=== PATIENT | female | born 1950 | race Caucasian/White ===

== ENCOUNTER 2018-01-20 09:48 | Day surgery (SDC) | payer MEDICARE ==
[2018-01-19 10:30] VITALS: BMI 33.8
[2018-01-20] MEDS ORDERED: Midazolam HCl 2 mg/2 ml Vial ONE (11:13)
[2018-01-20] MEDS ORDERED: Fentanyl 100 MCG/2 ML VIAL ONE ×3 (11:13→15:43)
[2018-01-20] MEDS ORDERED: Bupivacaine/Epinephrine 0.25% 30 ML VIAL ONE (11:40)
[2018-01-20] MEDS ORDERED: Heparin 5,000 UNITS/ML VIAL ONE (11:40)
[2018-01-20] MEDS ORDERED: Ioversol 68 % 50 ML VIAL ONE (11:40)
[2018-01-20] MEDS ORDERED: Protamine Sulfate 50 MG/5 ML VIAL ONE (11:40)
[2018-01-20 11:41] LABS: Anion Gap 15 mmol/L (10-20); BUN (Urea Nitrogen) 18 mg/dL (9.8-20.1); Calc. Creatinine Clearance 12 mL/min (70-130); Calcium 10.7 mg/dL (7.8-10.44); Carbon Dioxide 34 mmol/L (23-31); Chloride 95 mmol/L (98-107); Estimated GFR-MDRD 7; Glucose 85 mg/dL (80-115); Potassium 4.5 mmol/L (3.5-5.1); Sodium 139 mmol/L (136-145)
[2018-01-20 11:46] LABS: Mean Corpuscular HGB CONC 33.1 g/dL (32.0-36.0); Mean Corpuscular Hemoglobin 33.9 pg (27.0-31.0); Mean Platelet Volume 6.7 fL (7.4-10.4); Platelet Count 189 thou/uL (130-400); RBC Distribution Width 13.3 % (11.5-14.5); Red Blood Cell (RBC) Count 3.24 mill/uL (4.20-5.40); White Blood Cell (WBC) Count 3.2 thou/uL (4.8-10.8)
[2018-01-20] MEDS ORDERED: PROPOFOL 60 ML ONE (11:48)
[2018-01-20] MEDS ORDERED: Propofol 500 MG/50 ML VIAL ONE (11:48)
[2018-01-20] MEDS ORDERED: Famotidine/PF 20 mg/2ml Vial ONE (11:49)
[2018-01-20] MEDS ORDERED: CEFAZOLIN/Water 2 GM/20 ML SYRINGE ONE (11:53)
[2018-01-20 12:05] LABS: Band 1 % (5-11); Eosinophils 1 % (0-10); Lymphocytes 21 % (21-51); MDiff Complete? YES; Macrocytosis SLIGHT = 6-15 cells (100X) (0-5/hpf); Monocytes 10 % (0-10); Neutrophil 67 % (42-75)
[2018-01-20] MEDS ORDERED: Bupivacaine HCl 0.5%/Epinephrine 1:200,000/PF 30 ml Vial ONE (12:51)
[2018-01-20] MEDS ORDERED: Lidocaine 1% PF 5 ML VIAL ONE (13:11)
[2018-01-20] MEDS ORDERED: PROPOFOL 200 MG/20 ML VIAL ONE (13:11)
[2018-01-20] MEDS ORDERED: Ondansetron HCl/PF 4 MG/2 ML Vial ONE (13:11)
--- NOTE | 2018-01-20 17:43 | PDOC.OP ---
Operative Note - Operative Note Operative Note: PROCEDURE: Repair of right upper extremity AV fistula aneurysm DATE OF PROCEDURE: SURGEON: Adrián Gil M.D. 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 She has several large aneurysms of her fistula to which are becoming very thin and stretching of the overlying skin. She has not had any significant bleeding to date but the recommendation was made to address the aneurysms to prevent this from occurring PROCEDURE IN DETAIL: After informed consent was obtained and appropriate preoperative block administered the patient was taken to the operating wishes placed in supine position and total intravenous anesthesia was administered. She was prepped and draped in a standard sterile fashion and adequate peripheral block confirmed. Longitudinal incisions overlying the more normal portions of the fistula were made proximally and distally and the fistula was dissected free circumferentially and Vesseloops placed for proximal and distal control. A longitudinal incision was then made over the largest fistula in the upper arm excising some redundant skin area due to the fistula was dissected free down to its base. It was found to be broad-based without any identifiable neck. There wasn't any transition between normal and aneurysmal vessel visible in the wall of the vessel, which appeared thick-walled throughout. A long straight vascular clamp was obtained and placed longitudinally excluding the aneurysmal portion of the vessel and re-creating a tubular fistula. The aneurysmal portion of the vessel was resected and the vessel closed with a running Prolene suture with excellent technical result. The vessel clamp was removed and the longitudinal closure had excellent hemostasis. There was excellent thrill through the fistula throughout the procedure as the fistula was never occluded. The vessel was somewhat redundant so the decision was made to place this lateral to the skin incision to avoid overlapping of the incision over the fistula. This also allowed the incision and the vein to be placed laterally to avoid accessing through the incision. A small subcutaneous pocket was created and the vein placed within this pocket. Hemostasis was maintained throughout the procedure with Bovie electrocautery and Surgicel was placed along the length of the incision. The subcutaneous tissues were then approximated with a running 3-0 Monocryl suture and the skin incision was closed with a running 4-0 Monocryl subcuticular suture. Dermabond dressings were applied. The patient had adequate length of fistula above and below the incision for ongoing hemodialysis access in the areas which are acceptable to be accessed were marked on the skin for the hemodialysis nurses. An Ravi wrap was then placed and the patient was taken to the recovery room in good condition. Estimated blood loss was minimal. There were no complications. There were no specimens.
--- NOTE | 2018-01-20 20:31 | EKG ---
Test Reason : PREOP Blood Pressure : / mmHG Vent. Rate : 068 BPM Atrial Rate : 068 BPM P-R Int : 198 ms QRS Dur : 096 ms QT Int : 440 ms P-R-T Axes : 019 018 042 degrees QTc Int : 467 ms Normal sinus rhythm Normal ECG When compared with ECG of 24-JAN-2014 16:33, No significant change was found Confirmed by SVETLANA RAMIRES, SJaimie ([id number]) on 01/20/2018 8:30:40 PM Referred By: SAL Confirmed By:DR. Stone MOTA MD
== END 2018-01-20 17:18 | disposition home or self-care (01) ==
LOC: SDC 09:48
PROVIDERS: ATTEND Surgery
PROC: 03170ZD Bypass Right Brachial Artery to Upper Arm Vein, Open Approach (ICD-10-PCS; principal; 2018-01-20)
DX: T82.898A Other specified complication of vascular prosthetic devices, implants and grafts, initial encounter (principal); N18.6 End stage renal disease; I25.10 Atherosclerotic heart disease of native coronary artery without angina pectoris; F17.200 Nicotine dependence, unspecified, uncomplicated; Z86.73 Personal history of transient ischemic attack (TIA), and cerebral infarction without residual deficits; Z79.891 Long term (current) use of opiate analgesic; Z79.82 Long term (current) use of aspirin; Z79.899 Other long term (current) drug therapy; Z88.5 Allergy status to narcotic agent; Z99.2 Dependence on renal dialysis
CPT/HCPCS: 80048; 85025; 93005; 93010; 96374; J1644; J2250; J2704; J2720; J3010; Q9967; S0028

== ENCOUNTER 2018-03-17 07:15 | Day surgery (SDC) | payer MEDICARE ==
[2018-03-17] MEDS ORDERED: CEFAZOLIN/Water 2 GM/20 ML SYRINGE ONE (09:10)
[2018-03-17] MEDS ORDERED: Bupivacaine/Epinephrine 0.25% 30 ML VIAL ONE (09:24)
[2018-03-17] MEDS ORDERED: Sodium Chloride 0.9% 30 ML ONE (09:24)
[2018-03-17] MEDS ORDERED: Heparin 5,000 UNITS/ML VIAL ONE (09:24)
[2018-03-17] MEDS ORDERED: Protamine Sulfate 50 MG/5 ML VIAL ONE (09:24)
[2018-03-17] MEDS ORDERED: Fentanyl 100 MCG/2 ML VIAL ONE ×2 (09:42)
[2018-03-17] MEDS ORDERED: Lidocaine 2% 10 ML INJ ONE (10:12)
[2018-03-17 11:04] LABS: #Eosinphils 0.1 thou/uL (0.0-0.7); #Lymphocytes 1.1 thou/uL (1.20-3.40); #Monocytes 0.4 thou/uL (0.11-0.59); %Basophils 0.8 % (0.0-1.0); %Eosinophils 3.2 % (0.0-10.0); %Lymphocytes 30.6 % (21.0-51.0); %Neutrophils 53.4 % (42.0-75.0); Mean Corpuscular HGB CONC 34.5 g/dL (32.0-36.0); Mean Corpuscular Hemoglobin 35.3 pg (27.0-31.0); Mean Platelet Volume 6.4 fL (7.4-10.4); Platelet Count 183 thou/uL (130-400); RBC Distribution Width 13.2 % (11.5-14.5); White Blood Cell (WBC) Count 3.7 thou/uL (4.8-10.8)
[2018-03-17 11:25] LABS: Anion Gap 17 mmol/L (10-20); BUN (Urea Nitrogen) 34 mg/dL (9.8-20.1); Calc. Creatinine Clearance 0 mL/min (70-130); Calcium 9.2 mg/dL (7.8-10.44); Carbon Dioxide 30 mmol/L (23-31); Chloride 99 mmol/L (98-107); Estimated GFR-MDRD 7; Glucose 82 mg/dL (80-115); Potassium 5.5 mmol/L (3.5-5.1); Sodium 140 mmol/L (136-145)
--- NOTE | 2018-03-17 14:15 | RAD ---
SINGLE VIEW OF THE CHEST: Comparison: 11-28-15 History: Central line placement. FINDINGS: Single view of the chest shows a right IJ central venous catheter. This appears curled back on itself with the tip extending up the neck. No pneumothorax is seen. There is no evidence of consolidation, mass, or pleural effusions. A stent is seen in the left arm. IMPRESSION: Right IJ catheter appears to have a malpositioned tip extending back up the neck. POS: [facility]
[2018-03-17] MEDS ORDERED: PROPOFOL 200 MG/20 ML VIAL ONE (14:37)
[2018-03-17] MEDS ORDERED: PHENYLEPHRINE-NS 100 MCG/ML 10 ML SYRINGE ONE (14:37)
[2018-03-17] MEDS ORDERED: Ondansetron HCl/PF 4 MG/2 ML Vial ONE (14:37)
[2018-03-17] MEDS ORDERED: ePHEDrine/0.9% NaCl/PF SYRINGE 50 mg/10 ml ONE (14:37)
[2018-03-17] MEDS ORDERED: Lidocaine 1% PF 5 ML VIAL ONE (14:37)
--- NOTE | 2018-03-25 20:04 | PDOC.OP ---
Operative Note - Operative Note Operative Note: PROCEDURE: Repair of aneurysm of right AV fistula DATE OF PROCEDURE: 03/17/2018 SURGEON: Adrián Gil M.D. PREOPERATIVE DIAGNOSES: Enlarging aneurysm of right AV fistula POSTOPERATIVE DIAGNOSIS: Enlarging aneurysm of right AV fistula HISTORY: Patient with end-stage renal failure and right upper arm AV fistula with 2 very large and growing aneurysms of the fistula. She has previously undergone repair of the superior aneurysm and has healed from that. She is now here for repair of the inferior aneurysm. PROCEDURE IN DETAIL: After informed consent was obtained and appropriate preoperative antibiotics administered the patient was taken to the operating she was placed in supine position and anesthesia was administered. A longitudinal elliptical incision was made incorporating some the redundant skin over the large aneurysm. Dissection was carried down to the AV fistula proximal and distal to the aneurysm and vessel loops were placed for proximal and distal control. The aneurysm was then dissected free of the surrounding subcutaneous tissues. This was very broad-based aneurysm without any neck. A curved Satinsky clamp was used to exclude the redundant aneurysmal tissue while maintaining flow through the fistula and recreating the normal cylindrical anatomy of the fistula. The extraneous aneurysmal tissue and overlying skin was excised and the venotomy closed with a running Prolene suture with excellent technical result. The excision was done in such a way that the suture line would be along the lateral aspect of the fistula would not directly underlying the skin incision. The Satinsky clamp was then removed and hemostasis from the suture line confirmed. The wound was irrigated and hemostasis obtained using Bovie electrocautery on the subcutaneous tissues as needed. Surgicel was placed to the anastomosis as precaution. The subcutaneous tissues were reapproximated with a 3-0 Monocryl suture and the skin was closed with 4-0 Monocryl and Dermabond dressings were placed. The area of the fistula which had been dissected out was clearly marked on the skin as not being appropriate to access for hemodialysis. The fistula proximal and distal to the area of repair was marked as being appropriate for hemodialysis access. An excellent thrill was maintained through the fistula throughout the case. The patient was taken to recovery in good condition. Estimated blood loss was minimal. There were no complications.
== END 2018-03-17 15:16 | disposition home or self-care (01) ==
LOC: SDC 07:15
PROVIDERS: ATTEND Surgery
PROC: 03LY0CZ Occlusion of Upper Artery with Extraluminal Device, Open Approach (ICD-10-PCS; principal; 2018-03-17)
DX: T82.898A Other specified complication of vascular prosthetic devices, implants and grafts, initial encounter (principal); I77.0 Arteriovenous fistula, acquired; N18.6 End stage renal disease; I25.10 Atherosclerotic heart disease of native coronary artery without angina pectoris; F17.210 Nicotine dependence, cigarettes, uncomplicated; Z88.5 Allergy status to narcotic agent; Z79.82 Long term (current) use of aspirin; Z79.899 Other long term (current) drug therapy; Z90.5 Acquired absence of kidney
CPT/HCPCS: 71045; 80048; 85025; A4216; J1644; J2001; J2405; J2704; J2720; J3010

== ENCOUNTER 2018-09-15 11:01 | Outpatient (CLI) | payer MEDICARE ==
--- NOTE | 2018-09-15 12:08 | ULT ---
HEPATIC DUPLEX ULTRASOUND: Date: 09/15/18 INDICATION: History of hepatitis C. TECHNIQUE: Rod scale, color Doppler, and spectral images obtained of the liver, spleen, and hepatic vasculature . FINDINGS: Liver measures 15.5 cm in length. Liver had a coarse echotexture suspicious for underlying chronic li isha disease. No focal hepatic lesion is evident. There is appropriate hepatopetal flow seen within th e portal vein, splenic vein, and hepatic artery. Appropriate flow is seen within the splenic artery a nd hepatic veins. The spleen measured 10.4 cm in length. IMPRESSION: 1. Appropriate hepatopetal flow. 2. Coarse echotexture of the liver suspicious for underlying chronic liver disease. POS: [facility]
== END 2018-09-15 11:02 | disposition home or self-care (01) ==
LOC: SCSULT 11:01
PROVIDERS: ATTEND Physician Assistant Medical
DX: B18.2 Chronic viral hepatitis C (principal); D64.9 Anemia, unspecified; Z86.010 Personal history of colon polyps
CPT/HCPCS: 76705

== ENCOUNTER 2018-09-27 08:33 | Outpatient (CLI) | payer MEDICARE ==
--- NOTE | 2018-09-27 15:15 | CT ---
CT ABDOMEN AND PELVIS WITH IV CONTRAST: 09/27/2018 HISTORY: Colonic mass. History of right nephrectomy. Hepatitis. History of cholecystectomy. COMPARISON: 05/21/2011 FINDINGS: Dense vascular calcifications are seen in the visualized coronary arteries, as well as involving the abdominal aorta and iliac arteries. A vascular stent is again seen within the right external iliac a rtery. Post surgical changes related to a right nephrectomy are again seen. There are multiple hypodense le ft renal lesions seen, the largest measuring 2.4 cm, which demonstrates fluid attenuation. The addit ional lesions also likely represent multiple left renal cysts. There is renal cortical thinning pres ent. There is no hydronephrosis present. A tiny, subcentimeter, hypodense lesion is seen in the posterior segment, right hepatic lobe, which i s too small to characterize. The liver otherwise has a normal CT appearance. The spleen, pancreas, and bilateral adrenal glands demonstrate a normal CT appearance. There is dependent bibasilar atelectasis. The urinary bladder is incompletely distended but, otherwise, grossly normal in appearance. The uter us and adnexal structures demonstrate a normal appearance for the patient's age. The majority of the loops of small bowel are present within the right abdomen. However, the ligament of Treitz does extend in normal position. There is a fat density mass seen within the hepatic flexure of the colon, which does appear peduncula elizabeth. The largest length, as measured on coronal images, is 4.3 cm. The largest dimension on the corina or study, in 201, is 3.5 cm. A few linear, low density areas are seen within this fat density mass. This, again, may represent a lipoma within the hepatic flexure of the colon. This is, again, likely related to a lipoma, although thin linear densities are seen within this fat density mass. Liposarc denisse presenting as an intraluminal mass, involving the colon, is extremely rare. This mass was also p resent on a prior study in 2005, measuring 2.6 cm in maximal dimensions. A small amount of retained fecal material is seen throughout the colon. Loops of small bowel are nor mal in caliber. Degenerative changes are seen in the spine. IMPRESSION: 1. Fat density colonic mass in the hepatic flexure of the colon. This mass does appear pedunculated and is larger in size, compared to studies in 2010 and 2005. The greatest dimension on today's exam ination is approximately 4.3 cm. Findings are most likely attributable to mild enlargement of a lipo ma, as opposed to a liposarcoma. 2. Subcentimeter, yyj-uajsm-uv-characterize, hypodense lesions, right hepatic lobe. 3. Post surgical changes related to right nephrectomy. 4. Interval development of multiple hypodense left renal lesions, likely attributable to multiple le ft renal cyst. There is cortical thinning involving the left kidney. 5. Tiny, fat-containing umbilical hernia. 6. Mild cardiomegaly. The above findings were discussed with Dr. Babcock on 09/27/2018 at 1317 hours. POS: [facility]
== END 2018-09-27 08:34 | disposition home or self-care (01) ==
LOC: SCSCT 08:33
PROVIDERS: ATTEND Internal Medicine Gastroenterology
DX: K63.9 Disease of intestine, unspecified (principal); K76.9 Liver disease, unspecified; N28.9 Disorder of kidney and ureter, unspecified; K42.9 Umbilical hernia without obstruction or gangrene; I51.7 Cardiomegaly; Z90.5 Acquired absence of kidney
CPT/HCPCS: 74177

== ENCOUNTER 2020-05-20 14:34 | Inpatient (IN) | payer MEDICARE, OTHER ==
[2020-05-20] MEDS ORDERED: Ondansetron ODT 4 MG TAB PO PRN (15:47)
[2020-05-20] MEDS ORDERED: Senokot S 8.6-50 MG TAB PO PRN (15:47)
[2020-05-20] MEDS ORDERED: Acetaminophen 325 MG TAB PO PRN (15:47)
[2020-05-20] MEDS ORDERED: Dextrose 5% in Water 1,000 ML IV PRN (15:53)
[2020-05-20] MEDS ORDERED: Insulin Regular 300 UNITS/3 ML VIAL SC PRN (15:53)
[2020-05-20 16:21] LABS: #Lymphocytes 0.9 thou/uL (1.20-3.40); #Monocytes 0.8 thou/uL (0.11-0.59); #Neutrophils 3.9 thou/uL (1.40-6.50); %Basophils 0.2 % (0.0-1.0); %Eosinophils 0.2 % (0.0-10.0); %Lymphocytes 15.3 % (21.0-51.0); %Monocytes 13.5 % (0.0-10.0); %Neutrophils 70.8 % (42.0-75.0); Hemoglobin 15.5 g/dL (12.0-16.0); Mean Corpuscular Hemoglobin 32.7 pg (27.0-31.0); Mean Platelet Volume 8.1 fL (7.4-10.4); Platelet Count 149 thou/uL (130-400); RBC Distribution Width 16.3 % (11.5-14.5); Red Blood Cell (RBC) Count 4.74 mill/uL (4.20-5.40); White Blood Cell (WBC) Count 5.6 thou/uL (4.8-10.8)
[2020-05-20] MEDS ORDERED: Dextrose 50% Abboject 50 ML SYRINGE ONE (16:26)
[2020-05-20] MEDS ORDERED: Gabapentin 300 MG CAP PO PRN (16:28)
[2020-05-20] MEDS ORDERED: Labetalol HCl 100 MG/20 ML VIAL SLOW IVP PRN (16:31)
[2020-05-20 16:44] LABS: ALT (SGPT) 20 U/L (8-55); AST (SGOT) 26 U/L (5-34); Albumin 3.6 g/dL (3.4-4.8); Alkaline Phosphatase 140 U/L (40-110); Anion Gap 24 mmol/L (10-20); BUN (Urea Nitrogen) 48 mg/dL (9.8-20.1); Bilirubin, Total 0.6 mg/dL (0.2-1.2); Calc. Creatinine Clearance 8 mL/min (70-130); Carbon Dioxide 22 mmol/L (23-31); Chloride 97 mmol/L (98-107); Estimated GFR-MDRD 5; Globulin 3.3 g/dL (2.4-3.5); Magnesium 2.7 mg/dL (1.6-2.6); Protein, Total 6.9 g/dL (6.0-8.3); Sodium 137 mmol/L (136-145)
[2020-05-20] MEDS ORDERED: Sodium Chloride 0.9% 1,000 ML IV SCH (16:45)
[2020-05-20 16:54] LABS: Glucose 24 mg/dL (83-110)
--- NOTE | 2020-05-20 17:19 | HP ---
CHIEF COMPLAINT: Altered mentation. HISTORY OF PRESENT ILLNESS: A 70-year-old female with end-stage renal disease, on hemodialysis; coronary artery disease; and undergone rehab, just recently for the last 2 days; presenting with altered mentation. She was complaining of abdominal pain today as well as labile mentation, brought in by EMS to [facility] and found that her blood glucose was [address] of head showed several osteolytic lesions in the cranium. She was recently discharged after hospitalization for recurrent hypoglycemia, hypercalcemia, and hypotension. 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 REVIEW OF SYSTEMS: Not obtainable. PAST MEDICAL HISTORY: Recurrent hypoglycemia; hypercalcemia, end-stage renal disease, on hemodialysis; hypertension; history of hepatitis C; and secondary hyperparathyroidism. MEDICATIONS: She was discharged with the following medications: 1. Aspirin 81 mg. 2. Coreg 3.125 twice a day. 3. Gabapentin 600 mg p.o. at bedtime. 4. Effexor 150 mg daily. 5. Midodrine 5 mg 3 times a day. 6. Vitamin D3 of 1000 units. 7. Nephro-Mel 1 tablet. 8. Renvela 1600 mg 3 times a day. SOCIAL HISTORY: The patient currently lives with her son and [id number]. FAMILY HISTORY: Noncontributory. PHYSICAL EXAMINATION: GENERAL: She is afebrile, normotensive. She is quite altered. She is able to open her eyes for her name. Other than that, she is not responding much. 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 She has right AV fistula. She has some ecchymosis on her extremities. Lower extremities look very chronic venous stasis, dermatitis, associated skin changes. She has some mild pitting edema. CARDIOVASCULAR: Regular rate and rhythm without murmurs, rubs, or gallops. LUNGS: Clear to auscultation bilaterally. ABDOMEN: Quite benign, did not appreciate much tenderness. LABORATORY DATA: Currently, labs are performed at [place] showing calcium of 12.1, potassium of 6.3. Troponin now 0.44. EKG without any ST-T wave changes. IMPRESSION AND PLAN: This is a 70-year-old female with multiple medical problems, presenting with the followin. Altered mentation, likely secondary to recurrent hypoglycemia and hypercalcemia Initial blood glucose was 22 when checked at [facility]. It improved after the hypoglycemic protocol, but still she is mentally not more alert. We will continue with the Accu-Chek q.2 hours and correct her blood glucose to keep it above 70. 2. End-stage renal disease, on Wednesday, Wednesday, Wednesday dialysis. She missed her dialysis today. Dr. Hernandez is following. I will consult him for ongoing routine dialysis. Continue with renal medications. 3. Coronary artery disease. She follows with Dr. Agustin Rodriguez. Based on the conversation with the family member, no aggressive cardiac intervention. She has several blockages in the coronary vessels and developed significant collaterals. No aggressive cardiac intervention given her comorbidities. 4. Hyperkalemia with potassium of 6.3 without EKG changes. she will go through dialysis. 5. CT of head performed at [place] showing some osteolytic lesions concerning for new diagnosis of possible multiple myeloma. Her protein is 7.4, alkaline phosphatase 136, not strongly indicating the diagnosis. We will get urine electrophoresis as well as serum electrophoresis and consult the oncologist. 6. The patient does ambulate in the wheelchair for last 4 years due to severe DJD associated back discomfort. Could it be MM at initial stage?, she is still able to do some of her ADL activities by ambulating via wheelchair. She does not void. I talked to the [id number], her name is Lainey Do, , and the patient is DNR. I will put her on DVT prophylaxis, renally dosed heparin. Job ID: [id number] [facility]
[2020-05-20] MEDS: Sevelamer Carbonate 800 MG TAB PO SCH (17:50)
[2020-05-20] MEDS: Dextrose 10% in Water 1,000 ML IV SCH (17:50)
[2020-05-20] MEDS: Dextrose 50% Abboject 50 ML SYRINGE SLOW IVP PRN (20:51)
[2020-05-20] MEDS: Carvedilol 6.25 MG TAB PO SCH (21:35)
[2020-05-20] MEDS: Heparin 5,000 UNITS/ML VIAL SC SCH (21:35)
[2020-05-20] MEDS: Midodrine HCl 5 MG TAB PO SCH (21:48)
[2020-05-21] MEDS: Dextrose 50% Abboject 50 ML SYRINGE SLOW IVP PRN ×3 (02:13→19:24)
[2020-05-21] MEDS: Midodrine HCl 5 MG TAB PO SCH ×3 (06:18→20:55)
[2020-05-21] MEDS: Sevelamer Carbonate 800 MG TAB PO SCH ×3 (10:43→17:08)
[2020-05-21] MEDS: Aspirin 81 mg Enteric Coated Tablet PO SCH (10:44)
[2020-05-21] MEDS: Fluticasone Propionate Nasal Spray 16 gm Bottle NASAL SCH (10:45)
[2020-05-21] MEDS: Folic Acid/Vit B Comp W-C PO SCH (10:45)
[2020-05-21] MEDS: Cholecalciferol 1,000 UNITS (25 MCG) TAB PO SCH (10:45)
[2020-05-21] MEDS: Carvedilol 6.25 MG TAB PO SCH ×2 (10:45→20:04)
[2020-05-21] MEDS: Venlafaxine HCl XR 150 MG CAP PO SCH (10:46)
[2020-05-21] MEDS: Heparin 5,000 UNITS/ML VIAL SC SCH ×2 (10:46→20:02)
[2020-05-21 12:15] LABS: ALT (SGPT) 17 U/L (8-55); AST (SGOT) 21 U/L (5-34); Albumin 3.3 g/dL (3.4-4.8); Alkaline Phosphatase 128 U/L (40-110); BUN (Urea Nitrogen) 44 mg/dL (9.8-20.1); Bilirubin, Total 0.6 mg/dL (0.2-1.2); Calc. Creatinine Clearance 9 mL/min (70-130); Calcium 10.3 mg/dL (7.8-10.44); Carbon Dioxide 24 mmol/L (23-31); Chloride 95 mmol/L (98-107); Estimated GFR-MDRD 5; Globulin 2.5 g/dL (2.4-3.5); Glucose 157 mg/dL (83-110); Potassium 4.6 mmol/L (3.5-5.1); Protein, Total 5.8 g/dL (6.0-8.3)
[2020-05-21 12:18] LABS: HBSAg Index 0.18 S/CO (0-0.99); Hep B Surf Ag Non-Reactive S/CO (NonReactive)
[2020-05-21 12:24] LABS: Anion Gap 20 mmol/L (10-20); HBSAB Concentration 67.57 mIU/mL; Hep B Surf AB Reactive (NonReactive); Sodium 135 mmol/L (136-145)
[2020-05-21 13:33] LABS: SARS-CoV-2 MS2 Positive; SARS-CoV-2 N Gene Negative; SARS-CoV-2 S Gene Negative; SARS-CoV-2 by NAA Not Detected (NotDetected); SARS-CoV-2 orf1ab Negative
--- NOTE | 2020-05-21 13:56 | PDOC.HOSPP ---
- Subjective Encounter Date: 05/21/20 Encounter Time: 12:25 Subjective: lethargic, does not follow verbal stimuli keeps moaning - Objective Vital Signs & Weight: Vital Signs (12 hours) Temp BP Pulse Ox 05/21/20 11:41 97.9 F 05/21/20 10:45 96/42 L 05/21/20 07:59 97 05/21/20 07:41 97.8 F Weight Weight 182 lb 8 oz Most Recent Monitor Data Heart Rate from ECG 70 NIBP 100/58 NIBP BP-Mean 72 Respiration from ECG 15 SpO2 91 I&O: 05/20/20 05/21/20 05/22/20 06:59 06:59 06:59 Intake Total 600 Output Total 0 Balance 600 Result Diagrams: 05/20/20 16:05 05/21/20 11:00 Additional Labs: Accuchecks 05/21/20 05/21/20 05/21/20 11:39 10:06 09:07 POC Glucose 124 H 69 L 63 L 05/21/20 05/21/20 05/21/20 08:17 06:10 04:31 POC Glucose 77 90 109 H 05/21/20 05/21/20 05/21/20 03:23 02:14 01:04 POC Glucose 151 H 69 L 91 05/20/20 05/20/20 05/20/20 23:52 22:33 21:40 POC Glucose 100 131 H 144 H 05/20/20 05/20/20 05/20/20 20:54 19:27 18:40 POC Glucose 54 L* 72 78 05/20/20 17:24 POC Glucose 102 H Hospitalist ROS - Medication Medications: Active Medications Generic Name Dose Route Start Last Admin Trade Name Carlitosq PRN Reason Stop Dose Admin Aspirin 81 mg 05/21/20 09:00 05/21/20 10:44 Aspirin 81 Mg Enteric Coated Tablet PO Not Given DAILY [facility] Carvedilol 3.125 mg 05/20/20 21:00 05/21/20 10:45 Carvedilol 6.25 Mg Tab PO Not Given BID [facility] Cholecalciferol 1,000 units 05/21/20 09:00 05/21/20 10:45 Cholecalciferol 1,000 Units (25 Mcg) Tab PO Not Given DAILY [facility] Dextrose/Water 25 gm 05/20/20 15:53 05/21/20 10:18 Dextrose 50% Abboject 50 Ml Syringe SLOW IVP 25 gm PRN PRN Administration Hypoglycemia Fluticasone Propionate 1 gm 05/21/20 09:00 05/21/20 10:45 Fluticasone Propionate Nasal Dafter 16 Gm Bottle NASAL Not Given DAILY [facility] Heparin Sodium (Porcine) 5,000 units 05/20/20 21:00 05/21/20 10:46 Heparin 5,000 Units/Ml Vial SC Not Given BID [facility] Dextrose/Water 1,000 mls @ 50 mls/hr 05/20/20 17:15 05/20/20 17:50 Dextrose 10% In Water IV 1,000 mls .Q20H [facility] Administration Midodrine 5 mg 05/20/20 22:00 05/21/20 06:18 Midodrine Hcl 5 Mg Tab PO Not Given Q8HR [facility] Sevelamer Carbonate 1,600 mg 05/20/20 17:00 05/21/20 10:43 Sevelamer Carbonate 800 Mg Tab PO Not Given TID-WM [facility] Venlafaxine HCl 150 mg 05/21/20 09:00 05/21/20 10:46 Venlafaxine Hcl Xr 150 Mg Cap PO Not Given QAM [facility] Vitamin B Complex/Vit C/Folic Acid 1 tab 05/21/20 09:00 05/21/20 10:45 Folic Acid/Vit B Comp W-C PO Not Given DAILY [facility] - Exam General Appearance: ill appearing Eye: PERRL, anicteric sclera ENT: no oropharyngeal lesions, dry oral mucosa Neck: supple, no JVD Heart: RRR, no murmur Respiratory: no wheezes, no rales Gastrointestinal: soft, non-tender, non-distended, normal bowel sounds Extremities: no cyanosis, no edema Neurological: cranial nerve grossly intact, no focal deficits Hosp A/P (1) Hypoglycemia Code(s): E16.2 - HYPOGLYCEMIA, UNSPECIFIED Status: Acute (2) Acute metabolic encephalopathy Code(s): G93.41 - METABOLIC ENCEPHALOPATHY Status: Acute (3) ESRD (end stage renal disease) on dialysis Code(s): N18.6 - END STAGE RENAL DISEASE; Z99.2 - DEPENDENCE ON RENAL DIALYSIS Status: Chronic (4) Multiple myeloma Code(s): C90.00 - MULTIPLE MYELOMA NOT HAVING ACHIEVED REMISSION Status: Suspected (5) Ribs, multiple fractures Code(s): S22.49XA - MULTIPLE FRACTURES OF RIBS, UNSP SIDE, INIT FOR CLOS FX Status: Chronic Qualifiers: Encounter type: sequela Fracture type: closed Laterality: right Qualified Code(s): S22.41XS - Multiple fractures of ribs, right side, sequela (6) Hepatitis C Code(s): B19.20 - UNSPECIFIED VIRAL HEPATITIS C WITHOUT HEPATIC COMA Status: Chronic Qualifiers: Viral hepatitis chronicity: chronic Hepatic coma status: without hepatic coma Qualified Code(s): B18.2 - Chronic viral hepatitis C (7) Hypercalcemia Code(s): E83.52 - HYPERCALCEMIA Status: Acute (8) Hypertension Code(s): I10 - ESSENTIAL (PRIMARY) HYPERTENSION Status: Chronic - Plan she will be getting HD today has severe lytic lesions in most of her skeletal imaging is on D10 drip, still dipping into 50's at times blood cultures stat, start cefepime, vanc (no obvious source of infection but suspected due to profound hypoglycemia) CT abd stone protocol to see for ?perf viscous start liq diet as tolerated and advance spep, light chain has been sent out cortisol, tsh levels stat prognosis guarded due to multiple medical issues in addition to new findings of lytic lesions in axial skeleton and right breast mass?
[2020-05-21] MEDS ORDERED: Vancomycin HCl 1 GM in Sodium Chloride 0.9% 250 ML 250 ML IVPB SCH (14:00)
[2020-05-21] MEDS: Morphine 2 MG/ML VIAL SLOW IVP PRN ×2 (14:35→20:02)
[2020-05-21] MEDS ORDERED: Vancomycin 1 GM in Premix Bag 1 BAG IVPB SCH (15:00)
[2020-05-21] MEDS ORDERED: HOLD VANCOMYCIN FOR LEVEL >20 FS SCH (15:00)
[2020-05-21] MEDS ORDERED: Vancomycin HCl 500 MG in Sodium Chloride 0.9% 100 ML IVPB SCH (15:00)
[2020-05-21] MEDS ORDERED: Vancomycin HCl 750 MG in Sodium Chloride 0.9% 250 ML 250 ML IVPB SCH (15:00)
[2020-05-21] MEDS ORDERED: Vancomycin HCl 1.25 GM in Sodium Chloride 0.9% 250 ML 250 ML IVPB SCH (15:00)
[2020-05-21] MEDS: Dextrose 10% in Water 1,000 ML IV SCH (15:12)
[2020-05-21] MEDS ORDERED: Cefepime 1 GM in Sodium Chloride 0.9% 100 ML IVPB SCH (16:00)
[2020-05-21] MEDS: Cefepime 0.5 GM in Sodium Chloride 0.9% 100 ML IVPB SCH (16:15)
--- NOTE | 2020-05-21 18:34 | CON ---
DATE OF CONSULTATION: REASON FOR CONSULTATION: Lytic lesions. HISTORY OF PRESENT ILLNESS: Ms. Marcus is a 70-year-old female, who presented to the [place] [facility] from the [facility] for altered mental status. She was in the rehab after hospitalization for end-stage renal disease, hypercalcemia, and secondary hypoparathyroidism. She was doing well until several days ago when she began to be confused. In the ER at [place], she underwent a brain CT, which showed large osteolytic masses throughout the skull. She then underwent a chest, abdomen, and pelvis CT. There was a soft tissue mass in the right breast. She had multiple lytic foci throughout the vertebral body. She had a submucosal lipoma of the transverse colon. There was a moderate right pleural effusion. She has soft tissue mass in the right L3 lamina. She was started on IV fluids and admitted to the [facility]. She has been borderline hypotensive. She was seen at bedside with her son and [id number] present. She is confused and does not answer questions. She was currently on dialysis. She is yelling "it hurts." PAST MEDICAL HISTORY: 1. Coronary artery disease. 2. End-stage renal disease. 3. Chronic hypercalcemia. 4. Secondary hyperparathyroidism. 5. Hypertension. 6. History of hepatitis C. PAST SURGICAL HISTORY: 1. Left hand amputation. 2. Right nephrectomy. 3. Cholecystectomy. ALLERGIES: TO DILAUDID. HOME MEDICATIONS: 1. Aspirin. 2. Gabapentin. 3. Atorvastatin. 4. Coreg. 5. Cinacalcet. 6. Midodrine. 7. Prilosec. 8. MiraLAX. 9. Sevelamer carbonate. 10. Venlafaxine. 11. Calcium carbonate. 12. Clonidine. FAMILY HISTORY: Noncontributory. SOCIAL HISTORY: Lives with her son and [id number]-[id number], but was in the rehab post hospitalization . REVIEW OF SYSTEMS: Unable to obtain secondary to mentation changes. PHYSICAL EXAMINATION: VITAL SIGNS: Temperature 97.9, pulse 70, respiratory rate 15, and BP 100/58. She is 100% on room air. GENERAL: This is a chronically ill-appearing female, in mild distress. HEENT: Normocephalic and atraumatic. NECK: Supple. CV: Irregular rate and rhythm. LUNGS: Diminished throughout. ABDOMEN: Her abdomen is soft and nontender. Bowel sounds are positive. EXTREMITIES: No clubbing or cyanosis. SKIN: She has ecchymosis on her upper extremities. BREASTS: She has a small palpable lesion in the upper outer quadrant of her right breast. There are no skin changes. NEUROLOGICAL: The patient is altered and oriented x0. PERTINENT LABS AND X-RAYS: Current WBCs are 5.6, hemoglobin 15.5, hematocrit 50, and platelet count is 149,000. She has 70% neutrophils, 15% lymphocytes, 13% monocytes. Sodium is 135, potassium is 4.6, chloride is 95, CO2 is 24, BUN is 44, creatinine is 7.41, glucose is 157, and calcium is 10.3. Bilirubin is 0.6, AST is 21, ALT is 17, and alk phos is 128. Troponin is 0.446. C-reactive protein is 1.87. Serum total protein is 5.8, albumin is 3.3, and globulin is 2.5. TSH is 0.7903. COVID negative. RADIOLOGY: Per HPI. ASSESSMENT: 1. Acute toxic metabolic encephalopathy. 2. 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 3. Right breast mass. 4. Recent diagnosis of secondary hyperparathyroidism with hypercalcemia. DISCUSSION: Case has been discussed with Dr. Cazares. I had long discussion with family at bedside about biopsy of the right breast and one of the soft tissue mass at L3. The patient is currently confused and in distress. So, this can be deferred until her condition improves and serum protein electrophoresis has been sent pending results. Differential diagnosis includes multiple myeloma versus metastatic bone disease versus primary breast cancer. Family is hesitant to do biopsy as she is likely to poorly tolerate any treatment and I would agree with that. We will follow her over the next several days and continue the discussion on how aggressive to proceed. Thank you for the consult. Job ID: [id number]
[2020-05-22] MEDS: Morphine 2 MG/ML VIAL SLOW IVP PRN ×2 (01:23→20:55)
[2020-05-22] MEDS: Dextrose 50% Abboject 50 ML SYRINGE SLOW IVP PRN (01:30)
[2020-05-22] MEDS: Midodrine HCl 5 MG TAB PO SCH ×3 (05:47→21:01)
[2020-05-22] MEDS: Sevelamer Carbonate 800 MG TAB PO SCH ×3 (09:46→18:11)
[2020-05-22] MEDS: Carvedilol 6.25 MG TAB PO SCH ×2 (09:46→20:54)
[2020-05-22] MEDS: Cholecalciferol 1,000 UNITS (25 MCG) TAB PO SCH (09:46)
[2020-05-22] MEDS: Fluticasone Propionate Nasal Spray 16 gm Bottle NASAL SCH (09:46)
[2020-05-22] MEDS: Aspirin 81 mg Enteric Coated Tablet PO SCH (09:46)
[2020-05-22] MEDS: Folic Acid/Vit B Comp W-C PO SCH (09:47)
[2020-05-22] MEDS: Venlafaxine HCl XR 150 MG CAP PO SCH (09:47)
[2020-05-22] MEDS: Dextrose 10% in Water 1,000 ML IV SCH (10:17)
[2020-05-22] MEDS: Heparin 5,000 UNITS/ML VIAL SC SCH ×2 (10:17→21:09)
[2020-05-22 10:30] LABS: Vancomycin, Random 26.8 ug/mL (See Comment)
--- NOTE | 2020-05-22 14:26 | PDOC.HOSPP ---
- Subjective Encounter Date: 05/22/20 Encounter Time: 11:00 Subjective: awake, not oriented, does not follow verbal stimuli still encephalopathic - Objective Vital Signs & Weight: Vital Signs (12 hours) Temp BP Pulse Ox 05/22/20 11:10 98.1 F 05/22/20 09:46 96/42 L 05/22/20 08:00 100 05/22/20 07:21 98.0 F Weight Admit Weight 179 lb 8 oz Weight 183 lb 6.793 oz Most Recent Monitor Data Heart Rate from ECG 86 NIBP 125/66 NIBP BP-Mean 85 Respiration from ECG 17 SpO2 97 I&O: 05/21/20 05/22/20 05/23/20 06:59 06:59 06:59 Intake Total 600 1700 Output Total 0 0 Balance 600 1700 Result Diagrams: 05/20/20 16:05 05/21/20 11:00 Additional Labs: Accuchecks 05/22/20 05/22/20 05/22/20 14:15 12:26 09:35 POC Glucose 75 98 82 05/22/20 05/22/20 05/22/20 08:07 06:13 04:38 POC Glucose 94 118 H 124 H 05/22/20 05/22/20 05/22/20 03:16 01:33 00:09 POC Glucose 149 H 66 L 74 05/21/20 05/21/20 05/21/20 23:11 21:44 20:30 POC Glucose 74 131 H 103 H 05/21/20 05/21/20 05/20/20 19:25 16:56 16:31 POC Glucose 64 L 83 17 L* Hospitalist ROS - Medication Medications: Active Medications Generic Name Dose Route Start Last Admin Trade Name Freq PRN Reason Stop Dose Admin Aspirin 81 mg 05/21/20 09:00 05/22/20 09:46 Aspirin 81 Mg Enteric Coated Tablet PO Not Given DAILY [facility] Carvedilol 3.125 mg 05/20/20 21:00 05/22/20 09:46 Carvedilol 6.25 Mg Tab PO Not Given BID [facility] Cholecalciferol 1,000 units 05/21/20 09:00 05/22/20 09:46 Cholecalciferol 1,000 Units (25 Mcg) Tab PO Not Given DAILY [facility] Dextrose/Water 25 gm 05/20/20 15:53 05/22/20 01:30 Dextrose 50% Abboject 50 Ml Syringe SLOW IVP 25 gm PRN PRN Administration Hypoglycemia Fluticasone Propionate 1 gm 05/21/20 09:00 05/22/20 09:46 Fluticasone Propionate Nasal [place] 16 Gm Bottle NASAL Not Given DAILY [facility] Heparin Sodium (Porcine) 5,000 units 05/20/20 21:00 05/22/20 10:17 Heparin 5,000 Units/Ml Vial SC Not Given BID [facility] Dextrose/Water 1,000 mls @ 50 mls/hr 05/20/20 17:15 05/22/20 10:17 Dextrose 10% In Water IV 1,000 mls .Q20H [facility] Administration Midodrine 5 mg 05/20/20 22:00 05/22/20 05:47 Midodrine Hcl 5 Mg Tab PO Not Given Q8HR [facility] Morphine Sulfate 2 mg 05/21/20 13:52 05/22/20 01:23 Morphine 2 Mg/Ml Vial SLOW IVP 2 mg Q4H PRN Administration Pain Sevelamer Carbonate 1,600 mg 05/20/20 17:00 05/22/20 12:58 Sevelamer Carbonate 800 Mg Tab PO Not Given TID-WM [facility] Venlafaxine HCl 150 mg 05/21/20 09:00 05/22/20 09:47 Venlafaxine Hcl Xr 150 Mg Cap PO Not Given QAM [facility] Vitamin B Complex/Vit C/Folic Acid 1 tab 05/21/20 09:00 05/22/20 09:47 Folic Acid/Vit B Comp W-C PO Not Given DAILY [facility] - Exam General Appearance: ill appearing Eye: PERRL, anicteric sclera ENT: no oropharyngeal lesions, dry oral mucosa Neck: supple, no JVD Heart: RRR, no murmur Respiratory: no wheezes, no rales Gastrointestinal: soft, non-tender, non-distended, normal bowel sounds Extremities: no cyanosis, 1+ LE edema Neurological: cranial nerve grossly intact, no focal deficits Hosp A/P (1) Hypoglycemia Code(s): E16.2 - HYPOGLYCEMIA, UNSPECIFIED Status: Acute (2) Acute metabolic encephalopathy Code(s): G93.41 - METABOLIC ENCEPHALOPATHY Status: Acute (3) ESRD (end stage renal disease) on dialysis Code(s): N18.6 - END STAGE RENAL DISEASE; Z99.2 - DEPENDENCE ON RENAL DIALYSIS Status: Chronic (4) Multiple myeloma Code(s): C90.00 - MULTIPLE MYELOMA NOT HAVING ACHIEVED REMISSION Status: Suspected (5) Ribs, multiple fractures Code(s): S22.49XA - MULTIPLE FRACTURES OF RIBS, UNSP SIDE, INIT FOR CLOS FX Status: Chronic Qualifiers: Encounter type: sequela Fracture type: closed Laterality: right Qualified Code(s): S22.41XS - Multiple fractures of ribs, right side, sequela (6) Hepatitis C Code(s): B19.20 - UNSPECIFIED VIRAL HEPATITIS C WITHOUT HEPATIC COMA Status: Chronic Qualifiers: Viral hepatitis chronicity: chronic Hepatic coma status: without hepatic coma Qualified Code(s): B18.2 - Chronic viral hepatitis C (7) Hypercalcemia Code(s): E83.52 - HYPERCALCEMIA Status: Acute (8) Hypertension Code(s): I10 - ESSENTIAL (PRIMARY) HYPERTENSION Status: Chronic - Plan she will be getting HD today has severe lytic lesions in most of her skeletal imaging iv fluids blood cultures stat, on cefepime, vanc (no obvious source of infection but suspected due to profound hypoglycemia) CT abd showed no perforation/necrosis/abscess start liq diet as tolerated and advance spep, light chain has been sent out cortisol, tsh levels are normal prognosis guarded due to multiple medical issues in addition to new findings of lytic lesions in axial skeleton and right breast mass?
[2020-05-22] MEDS ORDERED: HYDROcodone/Acetaminophen 10/325 mg Tablet PO PRN (16:08)
[2020-05-22] MEDS: Cefepime 0.5 GM in Sodium Chloride 0.9% 100 ML IVPB SCH (16:24)
[2020-05-22 20:57] VITALS: BP 122/59
[2020-05-23] MEDS ORDERED: Lorazepam 2 MG/ML VIAL SLOW IVP SCH ×2 (01:45→21:45)
[2020-05-23] MEDS: Dextrose 10% in Water 1,000 ML IV SCH (04:32)
[2020-05-23 04:51] LABS: ALT (SGPT) 14 U/L (8-55); AST (SGOT) 22 U/L (5-34); Albumin 3.1 g/dL (3.4-4.8); Alkaline Phosphatase 135 U/L (40-110); Anion Gap 14 mmol/L (10-20); BUN (Urea Nitrogen) 14 mg/dL (9.8-20.1); Bilirubin, Total 0.7 mg/dL (0.2-1.2); Calc. Creatinine Clearance 17 mL/min (70-130); Calcium 10.6 mg/dL (7.8-10.44); Carbon Dioxide 27 mmol/L (23-31); Chloride 96 mmol/L (98-107); Estimated GFR-MDRD 11; Globulin 2.7 g/dL (2.4-3.5); Glucose 100 mg/dL (83-110); Potassium 3.9 mmol/L (3.5-5.1); Protein, Total 5.8 g/dL (6.0-8.3); Sodium 133 mmol/L (136-145)
[2020-05-23 04:52] LABS: Band 1 % (5-11); Eosinophils 2 % (0-10); Hemoglobin 13.2 g/dL (12.0-16.0); Lymphocytes 17 % (21-51); MDiff Complete? YES; Mean Corpuscular HGB CONC 30.8 g/dL (32.0-36.0); Mean Corpuscular Hemoglobin 32.2 pg (27.0-31.0); Mean Platelet Volume 7.7 fL (7.4-10.4); Monocytes 18 % (0-10); Neutrophil 62 % (42-75); Platelet Count 89 thou/uL (130-400); Platelet Morphology Comment Appears Decreased; RBC Distribution Width 16.1 % (11.5-14.5); Red Blood Cell (RBC) Count 4.12 mill/uL (4.20-5.40); White Blood Cell (WBC) Count 3.3 thou/uL (4.8-10.8)
[2020-05-23] MEDS: Midodrine HCl 5 MG TAB PO SCH ×3 (06:34→20:39)
--- NOTE | 2020-05-23 12:18 | PDOC.HOSPP ---
- Subjective Encounter Date: 05/23/20 Encounter Time: 09:00 Subjective: is more awake but not oriented at times is seen yelling - Objective Vital Signs & Weight: Vital Signs (12 hours) Temp Pulse Ox 05/23/20 11:16 96.5 F L 05/23/20 08:00 98 05/23/20 07:45 98.1 F 05/23/20 04:02 97.8 F Weight Admit Weight 179 lb 8 oz Weight 186 lb 1.122 oz Most Recent Monitor Data Heart Rate from ECG 83 NIBP 116/67 NIBP BP-Mean 83 Respiration from ECG 14 SpO2 94 I&O: 05/22/20 05/23/20 05/24/20 06:59 06:59 06:59 Intake Total 1700 700 Output Total 0 0 Balance 1700 700 Result Diagrams: 05/23/20 04:19 05/23/20 04:19 Additional Labs: Accuchecks 05/23/20 05/23/20 05/23/20 10:11 08:45 06:23 POC Glucose 108 H 94 90 05/22/20 05/22/20 05/22/20 23:23 22:07 21:19 POC Glucose 75 82 85 05/22/20 05/22/20 05/22/20 20:19 14:15 12:26 POC Glucose 97 75 98 Hospitalist ROS - Medication Medications: Active Medications Generic Name Dose Route Start Last Admin Trade Name Freq PRN Reason Stop Dose Admin Hydrocodone Bitart/Acetaminophen 1 tab 05/22/20 16:08 05/22/20 16:23 Hydrocodone/Acetaminophen 10/325 Mg Tablet PO 1 tab TIDPRN PRN Administration Pain 4-6 Aspirin 81 mg 05/21/20 09:00 05/22/20 09:46 Aspirin 81 Mg Enteric Coated Tablet PO Not Given DAILY [facility] Carvedilol 3.125 mg 05/20/20 21:00 05/22/20 20:54 Carvedilol 6.25 Mg Tab PO 3.125 mg BID [facility] Administration Cholecalciferol 1,000 units 05/21/20 09:00 05/22/20 09:46 Cholecalciferol 1,000 Units (25 Mcg) Tab PO Not Given DAILY [facility] Dextrose/Water 25 gm 05/20/20 15:53 05/22/20 01:30 Dextrose 50% Abboject 50 Ml Syringe SLOW IVP 25 gm PRN PRN Administration Hypoglycemia Fluticasone Propionate 1 gm 05/21/20 09:00 05/22/20 09:46 Fluticasone Propionate Nasal [place] 16 Gm Bottle NASAL Not Given DAILY [facility] Heparin Sodium (Porcine) 5,000 units 05/20/20 21:00 05/22/20 21:09 Heparin 5,000 Units/Ml Vial SC 5,000 units BID [facility] Administration Dextrose/Water 1,000 mls @ 50 mls/hr 05/20/20 17:15 05/23/20 04:32 Dextrose 10% In Water IV 1,000 mls .Q20H [facility] Administration Cefepime HCl 0.5 gm/ Sodium 100 mls @ 200 mls/hr 05/22/20 16:00 05/22/20 16:24 Chloride IVPB 100 mls 1600 [facility] Administration Midodrine 5 mg 05/20/20 22:00 05/23/20 06:34 Midodrine Hcl 5 Mg Tab PO Not Given Q8HR [facility] Morphine Sulfate 2 mg 05/21/20 13:52 05/22/20 20:55 Morphine 2 Mg/Ml Vial SLOW IVP 2 mg Q4H PRN Administration Pain Senna/Docusate Sodium 2 tab 05/20/20 15:47 05/22/20 20:54 Senokot S 8.6-50 Mg Tab PO 2 tab BID PRN Administration Constipation Sevelamer Carbonate 1,600 mg 05/20/20 17:00 05/22/20 18:11 Sevelamer Carbonate 800 Mg Tab PO Not Given TID-WM [facility] Venlafaxine HCl 150 mg 05/21/20 09:00 05/22/20 09:47 Venlafaxine Hcl Xr 150 Mg Cap PO Not Given QAM [facility] Vitamin B Complex/Vit C/Folic Acid 1 tab 05/21/20 09:00 05/22/20 09:47 Folic Acid/Vit B Comp W-C PO Not Given DAILY [facility] - Exam General Appearance: awake alert Eye: PERRL, anicteric sclera ENT: no oropharyngeal lesions, dry oral mucosa Neck: supple, no JVD Heart: RRR, no murmur Respiratory: no wheezes, no rales Gastrointestinal: soft, non-tender, non-distended, normal bowel sounds Extremities: no cyanosis, no edema Neurological: cranial nerve grossly intact, no focal deficits Hosp A/P (1) Hypoglycemia Code(s): E16.2 - HYPOGLYCEMIA, UNSPECIFIED Status: Acute (2) Acute metabolic encephalopathy Code(s): G93.41 - METABOLIC ENCEPHALOPATHY Status: Acute (3) ESRD (end stage renal disease) on dialysis Code(s): N18.6 - END STAGE RENAL DISEASE; Z99.2 - DEPENDENCE ON RENAL DIALYSIS Status: Chronic (4) Multiple myeloma Code(s): C90.00 - MULTIPLE MYELOMA NOT HAVING ACHIEVED REMISSION Status: Suspected (5) Ribs, multiple fractures Code(s): S22.49XA - MULTIPLE FRACTURES OF RIBS, UNSP SIDE, INIT FOR CLOS FX Status: Chronic Qualifiers: Encounter type: sequela Fracture type: closed Laterality: right Qualified Code(s): S22.41XS - Multiple fractures of ribs, right side, sequela (6) Hepatitis C Code(s): B19.20 - UNSPECIFIED VIRAL HEPATITIS C WITHOUT HEPATIC COMA Status: Chronic Qualifiers: Viral hepatitis chronicity: chronic Hepatic coma status: without hepatic coma Qualified Code(s): B18.2 - Chronic viral hepatitis C (7) Hypercalcemia Code(s): E83.52 - HYPERCALCEMIA Status: Acute (8) Hypertension Code(s): I10 - ESSENTIAL (PRIMARY) HYPERTENSION Status: Chronic - Plan she on D10 but ate her breakfast well this morning has severe lytic lesions in most of her skeletal imaging iv fluids blood cultures stat, on cefepime, vanc (no obvious source of infection but suspected due to profound hypoglycemia) CT abd showed no perforation/necrosis/abscess encourage po intake spep, light chain has been sent out cortisol, tsh levels are normal prognosis guarded due to multiple medical issues in addition to new findings of lytic lesions in axial skeleton and right breast mass? Family is wanting to take her home on hospice per palliative care
[2020-05-23 13:37] LABS: A/G Ratio 1.1 (0.7-1.7); Albumin 3.2 g/dL (2.9-4.4); Alpha 1 0.3 g/dL (0.0-0.4); Alpha 2 0.7 g/dL (0.4-1.0); Beta 0.7 g/dL (0.7-1.3); Gamma 1.4 g/dL (0.4-1.8); M-Spike Not Observed g/dL (Not Observed)
--- NOTE | 2020-05-23 14:26 | PDOC.FMACP ---
Advance Care Planning - Problem (1) Acute metabolic encephalopathy Status: Acute Code(s): G93.41 - METABOLIC ENCEPHALOPATHY (2) Breast mass Status: Acute Code(s): N63.0 - UNSPECIFIED LUMP IN UNSPECIFIED BREAST (3) Lytic lesion of bone on x-ray Status: Acute Code(s): M89.9 - DISORDER OF BONE, UNSPECIFIED (4) Palliative care encounter Status: Acute Code(s): Z51.5 - ENCOUNTER FOR PALLIATIVE CARE (5) ESRD (end stage renal disease) on dialysis Status: Chronic Code(s): N18.6 - END STAGE RENAL DISEASE; Z99.2 - DEPENDENCE ON RENAL DIALYSIS (6) Hypercalcemia Status: Acute Code(s): E83.52 - HYPERCALCEMIA (7) Hepatitis C Status: Chronic Code(s): B19.20 - UNSPECIFIED VIRAL HEPATITIS C WITHOUT HEPATIC COMA Qualifiers: Viral hepatitis chronicity: chronic Hepatic coma status: without hepatic coma Qualified Code(s): B18.2 - Chronic viral hepatitis C - Note Participants: patient, family, palliative care Summary: Palliative Care introduced Advanced Care Planning. The diagnosis, prognosis and goals of care were discussed. Appropriate forms and documentation to accomplish the goals of care were discussed. All questions were answered. Electing to transition to home setting and have hospice care to manage symptoms related to terminal condition. DNAR and OOHDNAR prepared for physician signature. Please also refer to Palliative Care notes in note section Time Spent (mins): 15
--- NOTE | 2020-05-23 14:27 | PDOC.MOPN ---
Interval History: no distress, still encephalopathic - Vital Signs Vital Signs: Vital Signs (12 hours) Temp Pulse Ox 05/23/20 11:16 96.5 F L 05/23/20 08:00 98 05/23/20 07:45 98.1 F 05/23/20 04:02 97.8 F Weight Admit Weight 179 lb 8 oz Weight 186 lb 1.122 oz Most Recent Monitor Data Heart Rate from ECG 83 NIBP 116/67 NIBP BP-Mean 83 Respiration from ECG 14 SpO2 94 - Physical Exam General: No acute distress Cardiovascular: Regular rate Neurological: Other (ams) Psych/Mental Status: Mental status NL (confused), Other - Labs Result Diagrams: 05/23/20 04:19 05/23/20 04:19 Lab results: Laboratory Results - last 24 hr 05/23/20 10:11: POC Glucose 108 H 05/23/20 08:45: POC Glucose 94 05/23/20 06:23: POC Glucose 90 05/23/20 04:19: WBC 3.3 L, RBC 4.12 L, Hgb 13.2, Hct 43.1, MCV 105.0 H, MCH 32.2 H, MCHC 30.8 L, RDW 16.1 H, Plt Count 89 L, MPV 7.7, Neutrophils % (Manual) 62, Band Neuts % (Manual) 1 L, Lymphocytes % (Manual) 17 L, Monocytes % (Manual) 18 H, Eosinophils % (Manual) 2, Plt Morphology Comment Appears Decreased L 05/23/20 04:19: Sodium 133 L, Potassium 3.9, Chloride 96 L, Carbon Dioxide 27, Anion Gap 14, BUN 14, Creatinine 3.91 H, Estimated GFR (MDRD) 11, Glucose 100, Calcium 10.6 H, Total Bilirubin 0.7, AST 22, ALT 14, Alkaline Phosphatase 135 H, Serum Total Protein 5.8 L, Albumin 3.1 L, Globulin 2.7, Albumin/Globulin Ratio 1.1 L 05/22/20 23:23: POC Glucose 75 05/22/20 22:07: POC Glucose 82 05/22/20 21:19: POC Glucose 85 05/22/20 20:19: POC Glucose 97 05/20/20 16:05: Globulin 3.0, Albumin/Globulin Ratio 1.1, Fnrtr-7-Kokczpkyq 0.3, Jadjo-8-Ttumdwxbp 0.7, Beta Globulins 0.7, Gamma Globulins 1.4, M-Hiren Not Observed, PEP Note , PEP Interpretation , Total Protein (SUHAS) 6.2, Albumin (SUHAS) 3.2 Status: lab reviewed by me A/P - Problem (1) Lytic lesion of bone on x-ray Current Visit: Yes Code(s): M89.9 - DISORDER OF BONE, UNSPECIFIED Status: Acute (2) Breast mass Current Visit: Yes Code(s): N63.0 - UNSPECIFIED LUMP IN UNSPECIFIED BREAST Status: Acute (3) Acute metabolic encephalopathy Current Visit: Yes Code(s): G93.41 - METABOLIC ENCEPHALOPATHY Status: Acute (4) ESRD (end stage renal disease) on dialysis Current Visit: Yes Code(s): N18.6 - END STAGE RENAL DISEASE; Z99.2 - DEPENDENCE ON RENAL DIALYSIS Status: Chronic (5) Hypercalcemia Current Visit: No Code(s): E83.52 - HYPERCALCEMIA Status: Acute - Plan Plan: 1. patient remains confused 2. SPEP non diagnostic, would need biopsy of breast and rib for diagnosis 3. poor candidate for treatment 4. family wishes to take her home on hospice, agree that best choice for patient.
--- NOTE | 2020-05-23 14:32 | PDOC.PALCO ---
Palliative Care Consult - Consult Details Requesting Physician: Dr Kaur Reason for Consult: goals of care, advance directives assistance, complex decision-making Family Members Present: Son and fudijkby-me-mby - Pertinent HPI 70 year old female recently discharged from the hospital and transitioned to rehab. She has end stage renal disease, hemodialysis, CAD. At rehab had onset of altered mental status, and was taken to [place] ER, evaluation identified glucose of 22, head CT found osteolytic lesions. Transferred to [facility] for further evaluation. CT of head, chest found abnormal tissue to right breast and soft tissue mass at L3. Family opting not to pursue biopsy secondary to patient fragile and poor candidate for treatment. - Pertinent PMH CAD, End Stage renal, HTN, Hep C, - Social History Smoking: no tobacco exposure Alcohol Use: none Drug Use History: none Living Situation: with family/parents (prior to rehab has lived with son and [id number] for last several years) - Medications MAR Reviewed: Yes - Allergies Allergies/Adverse Reactions: Allergies Allergy/AdvReac Type Severity Reaction Status Date / Time hydromorphone HCl Allergy Intermediate Verified 11/20/19 01:50 [From Dilaudid] - Subjective Family at bedside, confused with paranoia. - ROS Non Response: due to mental status - Objective Vital Signs: Vital Signs - Most Recent Temp Pulse Resp BP Pulse Ox 96.5 F L 122/59 L 98 05/23/20 11:16 05/22/20 20:54 05/23/20 08:00 Palliative Performance Scale: 40 - Physical Exam Constitutional: confusion, ill appearing HEENT: moist MMs, sclera anicteric, poor dentition Respiratory: no wheezing, unlabored breathing Cardiovascular: diminished peripheral pulses, irregular Gastrointestinal: soft, non-tender Deviation from normal: obese Neurology: moves all 4 limbs Skin: bruising Psychiatric: flat affect Deviation from normal: [place], confusion, Alert and oriented to self and family. - Problem List (1) Palliative care encounter Code(s): Z51.5 - ENCOUNTER FOR PALLIATIVE CARE Current Visit: Yes Status: Acute (2) Acute metabolic encephalopathy Code(s): G93.41 - METABOLIC ENCEPHALOPATHY Current Visit: Yes Status: Acute (3) Breast mass Code(s): N63.0 - UNSPECIFIED LUMP IN UNSPECIFIED BREAST Current Visit: Yes Status: Acute (4) Lytic lesion of bone on x-ray Code(s): M89.9 - DISORDER OF BONE, UNSPECIFIED Current Visit: Yes Status: Kerrie espino (5) ESRD (end stage renal disease) on dialysis Code(s): N18.6 - END STAGE RENAL DISEASE; Z99.2 - DEPENDENCE ON RENAL DIALYSIS Current Visit: Yes Status: Chronic (6) Hypercalcemia Code(s): E83.52 - HYPERCALCEMIA Current Visit: No Status: Acute (7) Hepatitis C Code(s): B19.20 - UNSPECIFIED VIRAL HEPATITIS C WITHOUT HEPATIC COMA Current Visit: No Status: Chronic Qualifiers: Viral hepatitis chronicity: chronic Hepatic coma status: without hepatic c denisse Qualified Code(s): B18.2 - Chronic viral hepatitis C - Plan/Recommendations Plan: Family discussed Goal of Care is to return to home, and have family come visit. They are requesting to transition to hospice care. Kvng Napier obtained choice letter, family requesting [facility]. Family also requesting support to facilitate face time conversation with patient son who is incarcerated. Will also relay to Dehydrator Operator with [facility]. Emotional support to patient coqwaeub-qs-ero who recently had one of her parents pass away. Patient son expressed ease with decision to transition home with hospice, he states that he mom "just wants to go home" and that they desire to bring family in to see her to enjoy time in the home setting, and mange symptoms through hospice care. Discussed multiple morbidities, decision not to pursue treatment, and continuing to honor what he believes are his mothers wishes secondary to her confusion and inability to be fully decisional. [50] minutes spent on this encounter with >50% of the time in counseling and coordination of care. Thank you for this very appropriate consult.
[2020-05-23] MEDS: Sevelamer Carbonate 800 MG TAB PO SCH ×2 (15:27→15:30)
[2020-05-23] MEDS: Aspirin 81 mg Enteric Coated Tablet PO SCH (15:28)
[2020-05-23] MEDS: Heparin 5,000 UNITS/ML VIAL SC SCH ×2 (15:28→20:39)
[2020-05-23] MEDS: Fluticasone Propionate Nasal Spray 16 gm Bottle NASAL SCH (15:28)
[2020-05-23] MEDS: Cholecalciferol 1,000 UNITS (25 MCG) TAB PO SCH (15:28)
[2020-05-23] MEDS: Carvedilol 6.25 MG TAB PO SCH ×2 (15:28→20:39)
[2020-05-23] MEDS: Folic Acid/Vit B Comp W-C PO SCH (15:28)
[2020-05-23] MEDS: Venlafaxine HCl XR 150 MG CAP PO SCH (15:29)
[2020-05-23] MEDS: Cefepime 0.5 GM in Sodium Chloride 0.9% 100 ML IVPB SCH (15:29)
[2020-05-24] MEDS: Dextrose 10% in Water 1,000 ML IV SCH (04:45)
[2020-05-24] MEDS: Midodrine HCl 5 MG TAB PO SCH (06:03)
[2020-05-24 07:18] VITALS: TEMP 99
[2020-05-24] MEDS: Sevelamer Carbonate 800 MG TAB PO SCH (09:26)
[2020-05-24] MEDS: Folic Acid/Vit B Comp W-C PO SCH (09:27)
[2020-05-24] MEDS: Cholecalciferol 1,000 UNITS (25 MCG) TAB PO SCH (09:27)
[2020-05-24] MEDS: Aspirin 81 mg Enteric Coated Tablet PO SCH (09:27)
[2020-05-24] MEDS: Fluticasone Propionate Nasal Spray 16 gm Bottle NASAL SCH (09:27)
[2020-05-24] MEDS: Carvedilol 6.25 MG TAB PO SCH (09:27)
[2020-05-24] MEDS: Heparin 5,000 UNITS/ML VIAL SC SCH (09:28)
[2020-05-24] MEDS: Venlafaxine HCl XR 150 MG CAP PO SCH (09:28)
[2020-05-24 10:19] VITALS: BMI 30.9
[2020-05-24] MEDS: Dextrose 50% Abboject 50 ML SYRINGE SLOW IVP PRN (13:30)
--- NOTE | 2020-05-24 14:28 | PDOC.PALPN ---
Palliative Progress Note - Subjective Awake, mild confusion however clear in refusing further treatment and desires to return to home setting. Brother and [id number]-vrn at bedside. - Objective Vital Signs: Vital Signs - Most Recent Temp Pulse Resp BP Pulse Ox 99.0 F 122/59 L 90 L 05/24/20 11:33 05/23/20 20:39 05/23/20 20:00 - Physical Exam Constitutional: confusion, ill appearing HEENT: moist MMs Respiratory: no rales, no rhonchi, no wheezing, diminished lung sound Cardiovascular: RRR Gastrointestinal: soft, positive bowel sounds Deviation from normal: Obese Musculoskeletal: no clubbing Neurology: moves all 4 limbs, no focal deficits Skin: cap refill <2 seconds, fragile - Assessment (1) Acute metabolic encephalopathy Code(s): G93.41 - METABOLIC ENCEPHALOPATHY Current Visit: Yes Status: Acute (2) Breast mass Code(s): N63.0 - UNSPECIFIED LUMP IN UNSPECIFIED BREAST Current Visit: Yes Status: Acute (3) Lytic lesion of bone on x-ray Code(s): M89.9 - DISORDER OF BONE, UNSPECIFIED Current Visit: Yes Status: Acute (4) Palliative care encounter Code(s): Z51.5 - ENCOUNTER FOR PALLIATIVE CARE Current Visit: Yes Status: Acute (5) ESRD (end stage renal disease) on dialysis Code(s): N18.6 - END STAGE RENAL DISEASE; Z99.2 - DEPENDENCE ON RENAL DIALYSIS Current Visit: Yes Status: Chronic (6) Hypercalcemia Code(s): E83.52 - HYPERCALCEMIA Current Visit: No Status: Acute (7) Hepatitis C Code(s): B19.20 - UNSPECIFIED VIRAL HEPATITIS C WITHOUT HEPATIC COMA Current Visit: No Status: Chronic Qualifiers: Viral hepatitis chronicity: chronic Hepatic coma status: without hepatic coma Qualified Code(s): B18.2 - Chronic viral hepatitis C - Plan Plan: Patient, although slight confusion, is confirming no further dialysis and wants to go home (points up to the ceiling/heaven when she states home) Brother at bedside and appears to have difficulty with patient decision. Spiritual care/Randall aware. Plan coordinated with Kvng Napier, primary nurse Rosi and Dr Kaur with [facility] for discharge to home setting and transition to hospice care. Patient son and rshwjzzr-fr-dzz awaiting patient discharge, the patient will transition to their home. Emotional support offered. [30] minutes spent on this encounter with >50% of the time in counseling and coordination of care. - ROS Non Response: due to mental status
--- NOTE | 2020-05-24 15:29 | DIS ---
DATE OF ADMISSION: 05/20/2020 DATE OF DISCHARGE: 05/24/2020 DISCHARGE DISPOSITION: To home with [facility]. PRIMARY DISCHARGE DIAGNOSES: 1. Persistent hypoglycemia. 2. Acute metabolic encephalopathy. 3. Multiple lytic lesions in most axial skeletal imaging, likely multiple myeloma, multiple rib fractures. 4. End-stage renal disease, on hemodialysis. 5. Chronic hepatitis C. 6. Hypercalcemia due to likely underlying multiple myeloma, which has not been diagnosed yet. 7. Hypertension. PROCEDURES DONE DURING HOSPITALIZATION: CT brain without contrast done showed very large number of osteolytic masses throughout the skull either multiple myeloma or metastatic bone disease. No acute intracranial findings were seen. CT of the abdomen and pelvis without contrast done showed incidental finding of soft tissue mass in the right breast. Right kidney was absent with polycystic atrophic left kidney. Multiple lytic foci throughout vertebral bodies as well as bilateral iliac wings, right L3 lamina as well as left L4 pars interarticularis. There is also loss of normal cortical medullary differentiation and sclerosis with lytic foci throughout the spine. This was suspicious for either renal osteodystrophy with brown tumors versus myeloma or a metastatic disease. H and H of 13 and 43, platelet count is 89, MCV is 105, and white count of 3.3. Albumin is 3.1, BUN 14, creatinine 3.9. Serum protein electrophoresis done showed no M spike. Serum calcium was 12.1 on admission. Albumin was 3.8 on admission. Potassium was 6.3. COVID-19 PCR done on 05/20/2020 was negative. DISCHARGE MEDICATIONS: 1. Venlafaxine extended release 150 mg p.o. q.a.m. 2. Lipitor 40 mg p.o. at bedtime. 3. Neurontin 600 mg p.o. daily. 4. Culver p.r.n. for pain. 5. Omeprazole 20 mg daily. 6. Midodrine 5 mg p.o. q.8 hourly. 7. Nephro-Mel one tablet once daily. ALLERGIES: TO HYDROMORPHONE. DISCHARGE PLAN: The patient is being discharged to home with [facility]. BRIEF COURSE DURING HOSPITALIZATION: The patient initially got admitted on the for altered mentation. The patient was found to be severely hypoglycemic and was on D10 drip. Her initial imaging studies of Brain/skull and CT of the abdomen and pelvis showed multiple lytic lesions. These were too numerous. The patient had hypercalcemia as well. She also had a right breast soft tissue mass seen incidentally on the CAT scan. Her altered mental state got slightly better, but the patient was still not oriented at the time of discharge. She continued to remain on D10 drip. Family did not want any aggressive measures done. They wanted to take her home with [facility]. This has been arranged today and she will be shortly discharged home. Family is clearly aware that the patient might pass away with hypoglycemia as her D10 drip will be discontinued at the time of discharge. She was given a dose of D50 and glucagon intramuscular shot prior to discharge, so that she can survive till she reaches home. Please note, I have seen and examined the patient on the day of discharge. Job ID: [id number] [facility]
[2020-05-25 20:09] LABS: Kappa Lambda Light Chain Ratio 1.31 (0.26-1.65); Kappa Light Chains 136.7 mg/L (3.3-19.4); Lambda Light Chain 104.3 mg/L (5.7-26.3)
== END 2020-05-24 14:10 | disposition hospice, home (50) | DRG 640 ==
LOC: IMCU/EMU 15:43
PROVIDERS: ADMIT Internal Medicine; ATTEND Internal Medicine
PROC: 5A1D70Z Performance of Urinary Filtration, Intermittent, Less than 6 Hours Per Day (ICD-10-PCS; 2020-05-21)
PROC: 5A1D70Z Performance of Urinary Filtration, Intermittent, Less than 6 Hours Per Day (ICD-10-PCS; principal; 2020-05-22)
DX: E16.2 Hypoglycemia, unspecified (principal); N18.6 End stage renal disease; Z66 Do not resuscitate; G92 Toxic encephalopathy; S22.41XA Multiple fractures of ribs, right side, initial encounter for closed fracture; N25.81 Secondary hyperparathyroidism of renal origin; C90.00 Multiple myeloma not having achieved remission; E83.52 Hypercalcemia; I25.10 Atherosclerotic heart disease of native coronary artery without angina pectoris; E87.5 Hyperkalemia; I12.9 Hypertensive chronic kidney disease with stage 1 through stage 4 chronic kidney disease, or unspecified chronic kidney disease; N63.0 Unspecified lump in unspecified breast; M89.9 Disorder of bone, unspecified; Z20.828 Contact with and (suspected) exposure to other viral communicable diseases; B18.2 Chronic viral hepatitis C; Z99.2 Dependence on renal dialysis; Z79.82 Long term (current) use of aspirin; Z79.899 Other long term (current) drug therapy; Z90.49 Acquired absence of other specified parts of digestive tract; Z90.5 Acquired absence of kidney; Z89.112 Acquired absence of left hand; Z99.3 Dependence on wheelchair; Z51.5 Encounter for palliative care
CPT/HCPCS: 36415; 36416; 80053; 80202; 82533; 83735; 83883; 84165; 84443; 85025; 86140; 86706; 87040; 87149; 87340; 87635; 90935; G0257; J0692; J1610; J1644; J2060; J2270; J3370; J3490; J7050; U0003